=== PATIENT | female | born 1965 | race Caucasian/White ===

== ENCOUNTER → 2020-07-11 | Outpatient (CLI) | payer SELFPAY ==
[2015-12-11 19:35] VITALS: BP 124/73
[~2020-07-11] MED LIST: OXYC5CAP PO
--- NOTE | 2020-07-11 15:41 | KCIC ---
EXAM: Left hand, 3 views. HISTORY: Trauma. COMPARISON: None. FINDINGS: 3 views of the left hand are obtained. There is an angulated fracture of the distal fifth m etacarpal. 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 There is no foreign body. IMPRESSION: Acute angled fracture of the distal fifth metacarpal. Electronically signed by: Stefanie Foley MD (07/11/2020 3:39 PM) [id number]
== END ==
LOC: KCIC 15:18
PROVIDERS: ATTEND Emergency Medicine
DX: S62.397A Other fracture of fifth metacarpal bone, left hand, initial encounter for closed fracture (principal); X58.XXXA Exposure to other specified factors, initial encounter; Y93.89 Activity, other specified; Y92.89 Other specified places as the place of occurrence of the external cause; Y99.8 Other external cause status
CPT/HCPCS: 73130

== ENCOUNTER → 2020-11-09 | Outpatient (CLI) | payer OTHER ==
[2015-12-11 19:35] VITALS: BP 124/73
--- NOTE | 2020-11-09 15:14 | RAD ---
CLINICAL HISTORY: Reason: RUQ ABD PAIN COMPARISON: None available. TECHNIQUE: Limited ultrasound examination of the right upper quadrant of the abdomen was performed FINDINGS: The head and body of the pancreas are unremarkable. The tail is obscured by intestinal gas.. Liver: 16.6 cm in length. Increased hepatic echogenicity relative to the right kidney consistent wi th hepatic steatosis.. There are no focal liver lesions. Flow seen within the portal veins. Biliary: Small dependent gallstones are seen within the gallbladder.. No wall thickening or perichol ecystic fluid. There is no pain with direct transducer pressure over the gallbladder. Common bile duct measures 0.3 cm. Right Kidney: 11.6 cm in bipolar length. Normal renal cortical echotexture and thickness. No focal re nal lesion, shadowing renal calculus or hydronephrosis. Visualized portions of the abdominal aorta and inferior vena cava are unremarkable. There is no free fluid in the subhepatic space. IMPRESSION: 1. Cholelithiasis without sonographic evidence for acute cholecystitis. 2. Mild increased echogenicity of the liver relative to the right kidney likely fatty liver. Electronically signed by: Antonio Ortega MD (11/09/2020 3:12 PM) [id number]
== END ==
LOC: US 10:28
PROVIDERS: ATTEND Nurse Practitioner Family
DX: K80.20 Calculus of gallbladder without cholecystitis without obstruction (principal)
CPT/HCPCS: 76705